=== PATIENT | female | born 1985 | race African-American/Black ===

== ENCOUNTER 2018-05-27 09:19 | Emergency (ER) | payer BC ==
[~2018-05-27] VITALS: Ht 154.9 cm; Wt 66.2 kg
[2018-05-27] MEDS ORDERED: CEPACOL SORE T1 EAC7 PO (09:39)
[2018-05-27] MEDS ORDERED: FLONASE 0.05%50 MCG NASAL (09:39)
[2018-05-27] MEDS ORDERED: VENTOLIN HFA 1818 GM INH (10:18)
[2018-05-27 10:40] VITALS: BP 117/72
== END 2018-05-27 10:54 | disposition home or self-care (01) ==
LOC: ER 09:19
DX: J06.9 Acute upper respiratory infection, unspecified (principal); R11.10 Vomiting, unspecified; J45.909 Unspecified asthma, uncomplicated; Z88.6 Allergy status to analgesic agent

== ENCOUNTER 2019-02-25 18:00 | Emergency (ER) | payer BC ==
[~2019-02-25] VITALS: Ht 157.5 cm; Wt 68.0 kg
[~2019-02-25 18:00] MED LIST: CEPACOL SORE T1 EAC7 PO; FLONASE 0.05%50 MCG NASAL; VENTOLIN HFA 1818 GM INH
[2019-02-25] MEDS ORDERED: PREDNISONE 20 M20 MG PO (20:59)
[2019-02-25] MEDS ORDERED: EPIPEN 2-P0.3 MG/0.3 IM (20:59)
[2019-02-25 21:37] VITALS: BP 108/55
== END 2019-02-25 21:37 | disposition home or self-care (01) ==
LOC: ER 18:00
DX: T78.2XXA Anaphylactic shock, unspecified, initial encounter (principal); J98.01 Acute bronchospasm; Z88.6 Allergy status to analgesic agent; Z87.442 Personal history of urinary calculi; Z98.890 Other specified postprocedural states

== ENCOUNTER 2020-07-15 22:21 | Emergency (ER) | payer OTHER ==
[~2020-07-15] VITALS: Ht 157.5 cm; Wt 61.2 kg
[~2020-07-15 22:21] MED LIST changes: +EPIPEN 2-P0.3 MG/0.3 IM; +PREDNISONE 20 M20 MG PO
[2020-07-15 22:58] LABS: URINE BILIRUBIN NEGATIVE (Negative); URINE BLOOD NEGATIVE (Negative); URINE CLARITY SL CLOUDY; URINE COLOR YELLOW; URINE GLUCOSE-RANDOM* NEGATIVE (Negative); URINE KETONES TRACE (Negative); URINE LEUKOCYTES-REFLEX NEGATIVE (Negative); URINE NITRITE-REFLEX NEGATIVE (Negative); URINE PROTEIN (DIPSTICK) NEGATIVE (Negative)
[2020-07-15 23:04] LABS: ABSOLUTE NEUTROPHILS 5.4 thou/uL (1.4-8.2); BASOPHILS 0.7 % (0.0-2.0); EOSINOPHILS 1.4 % (0.0-3.0); HEMATOCRIT 39.1 % (37.0-47.0); HEMOGLOBIN 12.9 gm/dL (12.0-15.0); LYMPHOCYTES 21.3 % (24.0-44.0); MCH 28.7 pg (26.0-34.0); MCHC 32.9 g/dL (28.0-37.0); MCV 87.2 fL (80.0-100.0); MONOCYTES 10.9 % (1.0-8.0); PLATELET COUNT 202 thou/uL (150-400); POLYS 65.7 % (36.0-66.0); RBC 4.48 mil/uL (4.20-5.00); WBC 8.2 thou/uL (4.0-11.0)
[2020-07-15 23:05] LABS: CREATININE 0.8 mg/dL (0.6-1.0); POTASSIUM 3.9 mmol/L (3.5-5.1)
[2020-07-15 23:12] LABS: ALBUMIN 3.8 g/dL (3.4-5.0); TOTAL BILIRUBIN 0.5 mg/dL (0.2-1.0); TOTAL PROTEIN 7.7 g/dL (6.4-8.2)
[2020-07-16 03:44] VITALS: BP 103/63
== END 2020-07-16 03:48 | disposition home or self-care (01) ==
LOC: ER 22:21
PROVIDERS: Emergency Medicine
DX: R10.9 Unspecified abdominal pain (principal); M54.9 Dorsalgia, unspecified; R30.9 Painful micturition, unspecified; Z87.442 Personal history of urinary calculi; Z90.711 Acquired absence of uterus with remaining cervical stump; J45.909 Unspecified asthma, uncomplicated; Z98.51 Tubal ligation status; Z98.890 Other specified postprocedural states; Z79.899 Other long term (current) drug therapy; Z88.6 Allergy status to analgesic agent; Z88.8 Allergy status to other drugs, medicaments and biological substances